=== PATIENT | male | born 1970 | race Caucasian/White ===

== ENCOUNTER 2018-07-07 22:04 | Observation (INO) | payer BC ==
[2018-07-07] MEDS ORDERED: ACETAMINOPHEN 325 MG TAB PO (23:00)
[2018-07-07] MEDS ORDERED: ALBUTEROL/IPRATROPIUM (NEB) 3 ML AMP HHN (23:00)
[2018-07-07] MEDS ORDERED: ONDANSETRON 4 MG INJ IV (23:00)
[2018-07-07] MEDS ORDERED: NACL 0.9% 3 ML SYG IV (23:00)
[2018-07-08] MEDS: METHYLPREDNISOLONE 40 MG INJ IV ×2 (00:14→08:50)
[2018-07-08 05:25] LABS: ADD MAN DIFF? NO
[2018-07-08 05:33] LABS: WHITE BLOOD COUNT 18.7 10^3/ul (4.8-10.8)
[2018-07-08 05:33] LABS: BASOPHILS % 0.1 % (0.0-2.0); HEMATOCRIT 43.6 % (42.0-52.0); HEMOGLOBIN 14.4 g/dl (14.0-18.0); LYMPHOCYTES # 0.6 10^3/ul (0.8-2.9); LYMPHOCYTES % 3.4 % (15.0-51.0); MEAN CORPUSCULAR HEMOGLOBIN 31.1 pg (29.0-33.0); MEAN CORPUSCULAR VOLUME 94.2 fl (82.0-101.0); MEAN PLATELET VOLUME 10.2 fl (7.4-10.4); MONOCYTE # 0.7 10^3/ul (0.3-0.9); MONOCYTES % 3.6 % (0.0-11.0); NEUTROPHIL # 17.3 10^3/ul (1.6-7.5); NEUTROPHILS % 92.3 % (39.0-77.0); PLATELET COUNT 264 10^3/UL (140-415); RED BLOOD COUNT 4.63 10^6/ul (4.70-6.10); RED CELL DISTRIBUTION WIDTH 12.3 % (11.5-14.5)
[2018-07-08 06:04] LABS: ALANINE AMINOTRANSFERASE 18 IU/L (13-69); ALBUMIN 3.5 g/dl (3.3-4.9); ALKALINE PHOSPHATASE 60 IU/L (42-121); ANION GAP 10 (5-13); ASPARTATE AMINO TRANSFERASE 17 IU/L (15-46); BILIRUBIN,INDIRECT 0.5 mg/dl (0-1.1); BILIRUBIN,TOTAL 0.5 mg/dl (0.2-1.3); BLOOD UREA NITROGEN 30 mg/dl (7-20); CALCIUM 9.2 mg/dl (8.4-10.2); CARBON DIOXIDE 29 mmol/L (21-31); CHLORIDE 103 mmol/L (97-110); CREATININE 0.88 mg/dl (0.61-1.24); Estimated GFR > 60 mL/min (>60); GLUCOSE 136 mg/dl (70-220); MAGNESIUM 2.2 mg/dl (1.7-2.5); PHOSPHORUS 4.5 mg/dl (2.5-4.9); POTASSIUM 4.1 mmol/L (3.5-5.1); SODIUM 142 mmol/L (135-144)
[2018-07-08 06:05] LABS: ALBUMIN/GLOBULIN RATIO 1.25; TOTAL PROTEIN 6.3 g/dl (6.1-8.1)
[2018-07-08] MEDS: LEVOFLOXACIN 500MG/D5W (PMX) 100 ML IVPB (06:27)
[2018-07-08] MEDS: NICOTINE (14 MG/24 HR) PATCH TRANSDERM (08:51)
[2018-07-08] MEDS: HEPARIN 5,000 UNIT/1 ML VIAL SC ×2 (08:52→20:41)
[2018-07-08] MEDS: MOMETASONE 0.24 GM INHALER INH ×2 (11:12→20:40)
[2018-07-08] MEDS: ALBUTEROL/IPRATROPIUM (NEB) 3 ML AMP HHN ×3 (12:41→20:52)
[2018-07-09] MEDS: ALBUTEROL/IPRATROPIUM (NEB) 3 ML AMP HHN ×4 (01:02→13:58)
[2018-07-09] MEDS: LEVOFLOXACIN 500MG/D5W (PMX) 100 ML IVPB (05:47)
[2018-07-09] MEDS: METHYLPREDNISOLONE 40 MG INJ IV (09:12)
[2018-07-09] MEDS: NICOTINE (14 MG/24 HR) PATCH TRANSDERM (09:13)
[2018-07-09] MEDS: MOMETASONE 0.24 GM INHALER INH (09:13)
[2018-07-09] MEDS: HEPARIN 5,000 UNIT/1 ML VIAL SC (09:20)
[2018-07-09 11:47] LABS: ADD MAN DIFF? NO
[2018-07-09 11:56] LABS: BASOPHILS % 0.1 % (0.0-2.0); EOSINOPHILS % 0.1 % (0.0-7.0); HEMATOCRIT 43.6 % (42.0-52.0); HEMOGLOBIN 14.7 g/dl (14.0-18.0); LYMPHOCYTES % 7.8 % (15.0-51.0); MEAN CORPUSCULAR HEMOGLOBIN 31.4 pg (29.0-33.0); MEAN CORPUSCULAR HGB CONC 33.7 g/dl (32.0-37.0); MEAN CORPUSCULAR VOLUME 93.2 fl (82.0-101.0); MEAN PLATELET VOLUME 9.9 fl (7.4-10.4); MONOCYTE # 0.9 10^3/ul (0.3-0.9); MONOCYTES % 6.6 % (0.0-11.0); NEUTROPHILS % 84.8 % (39.0-77.0); PLATELET COUNT 252 10^3/UL (140-415); RED BLOOD COUNT 4.68 10^6/ul (4.70-6.10); RED CELL DISTRIBUTION WIDTH 12.4 % (11.5-14.5)
[2018-07-09 12:04] LABS: ANION GAP 9 (5-13); BLOOD UREA NITROGEN 31 mg/dl (7-20); CALCIUM 8.7 mg/dl (8.4-10.2); CARBON DIOXIDE 29 mmol/L (21-31); CHLORIDE 102 mmol/L (97-110); CREATININE 0.89 mg/dl (0.61-1.24); Estimated GFR > 60 mL/min (>60); GLUCOSE 115 mg/dl (70-220); POTASSIUM 3.8 mmol/L (3.5-5.1); SODIUM 140 mmol/L (135-144)
== END 2018-07-09 15:35 | disposition home or self-care (01) ==
LOC: MS1 22:04
DX: J45.901 Unspecified asthma with (acute) exacerbation (principal); R06.02 Shortness of breath; Z71.6 Tobacco abuse counseling
CPT/HCPCS: 71046; 80048; 80053; 83735; 84100; 85025; 90686; 94640; 94664

== ENCOUNTER 2018-10-31 04:47 | Inpatient (IN) | payer BC ==
[2018-10-31] MEDS ORDERED: ONDANSETRON 4 MG INJ IV (06:30)
[2018-10-31] MEDS ORDERED: NACL 0.9% 3 ML SYG IV (06:30)
[2018-10-31] MEDS ORDERED: PROVENTIL HFA 6.7GM INHALER INH (06:30)
[2018-10-31] MEDS: METHYLPREDNISOLONE 125 MG INJ IV ×2 (07:14→21:20)
[2018-10-31] MEDS: MOMETASONE 0.24 GM INHALER INH ×2 (07:44→21:37)
[2018-10-31] MEDS: ALBUTEROL HFA 8 GM INHALER INH ×5 (07:44→21:36)
[2018-10-31] MEDS: NICOTINE (14 MG/24 HR) PATCH TRANSDERM (07:58)
[2018-10-31 08:30] LABS: ADD MAN DIFF? NO
[2018-10-31 08:40] LABS: ABNORMAL IP MESSAGE 1; BASOPHILS % 0.2 % (0.0-2.0); HEMATOCRIT 48.3 % (42.0-52.0); LYMPHOCYTES # 0.6 10^3/ul (0.8-2.9); LYMPHOCYTES % 4.4 % (15.0-51.0); MEAN CORPUSCULAR HEMOGLOBIN 30.9 pg (29.0-33.0); MEAN CORPUSCULAR HGB CONC 33.1 g/dl (32.0-37.0); MEAN CORPUSCULAR VOLUME 93.2 fl (82.0-101.0); MEAN PLATELET VOLUME 9.7 fl (7.4-10.4); MONOCYTE # 0.4 10^3/ul (0.3-0.9); NEUTROPHIL # 12.1 10^3/ul (1.6-7.5); NEUTROPHILS % 91.9 % (39.0-77.0); PLATELET COUNT 309 10^3/UL (140-415); POSITIVE DIFF @See below; RED BLOOD COUNT 5.18 10^6/ul (4.70-6.10); RED CELL DISTRIBUTION WIDTH 12.6 % (11.5-14.5)
[2018-10-31 08:40] LABS: WHITE BLOOD COUNT 13.2 10^3/ul (4.8-10.8)
[2018-10-31] MEDS ORDERED: NON-FORMULARY/PATIENT OWN MED ([Nicotine (14 Mg/24 Hr)] 1 PATCH) TRANSDERM (09:00)
[2018-10-31 09:03] LABS: ALANINE AMINOTRANSFERASE 21 IU/L (13-69); ALBUMIN 4.3 g/dl (3.3-4.9); ALBUMIN/GLOBULIN RATIO 1.34; ALKALINE PHOSPHATASE 65 IU/L (42-121); ANION GAP 19 (5-13); ASPARTATE AMINO TRANSFERASE 25 IU/L (15-46); BILIRUBIN,INDIRECT 0.4 mg/dl (0-1.1); BILIRUBIN,TOTAL 0.4 mg/dl (0.2-1.3); BLOOD UREA NITROGEN 21 mg/dl (7-20); CALCIUM 9.5 mg/dl (8.4-10.2); CARBON DIOXIDE 19 mmol/L (21-31); CHLORIDE 104 mmol/L (97-110); CREATININE 1.04 mg/dl (0.61-1.24); Estimated GFR > 60 mL/min (>60); GLUCOSE 150 mg/dl (70-220); MAGNESIUM 2.4 mg/dl (1.7-2.5); POTASSIUM 3.8 mmol/L (3.5-5.1); SODIUM 142 mmol/L (135-144); TOTAL PROTEIN 7.5 g/dl (6.1-8.1)
[2018-10-31] MEDS ORDERED: GUAIFENESIN/CODEINE 5ML CUP PO (10:30)
[2018-10-31] MEDS: GUAIFENESIN/CODEINE 5ML CUP PO ×2 (10:58→17:14)
[2018-10-31] MEDS: ACETAMINOPHEN 325 MG TAB PO (17:14)
[2018-10-31] MEDS: ALBUTEROL/IPRATROPIUM (NEB) 3 ML AMP HHN (21:54)
[2018-10-31] MEDS: HYDROCODONE/APAP (10/325) TAB PO (22:55)
[2018-11-01] MEDS: ALBUTEROL HFA 8 GM INHALER INH ×5 (02:46→16:39)
[2018-11-01 06:15] LABS: ADD MAN DIFF? NO
[2018-11-01 06:20] LABS: WHITE BLOOD COUNT 15.8 10^3/ul (4.8-10.8)
[2018-11-01 06:20] LABS: BASOPHILS % 0.2 % (0.0-2.0); HEMATOCRIT 45.3 % (42.0-52.0); HEMOGLOBIN 15.2 g/dl (14.0-18.0); LYMPHOCYTES # 1.2 10^3/ul (0.8-2.9); LYMPHOCYTES % 7.6 % (15.0-51.0); MEAN CORPUSCULAR HEMOGLOBIN 31.2 pg (29.0-33.0); MEAN CORPUSCULAR HGB CONC 33.6 g/dl (32.0-37.0); MEAN PLATELET VOLUME 9.6 fl (7.4-10.4); MONOCYTE # 0.5 10^3/ul (0.3-0.9); MONOCYTES % 3.2 % (0.0-11.0); NEUTROPHIL # 13.9 10^3/ul (1.6-7.5); NEUTROPHILS % 88.2 % (39.0-77.0); PLATELET COUNT 294 10^3/UL (140-415); RED BLOOD COUNT 4.87 10^6/ul (4.70-6.10); RED CELL DISTRIBUTION WIDTH 12.4 % (11.5-14.5)
[2018-11-01 07:00] LABS: ANION GAP 10 (5-13); BLOOD UREA NITROGEN 31 mg/dl (7-20); CALCIUM 8.9 mg/dl (8.4-10.2); CARBON DIOXIDE 29 mmol/L (21-31); CHLORIDE 99 mmol/L (97-110); CREATININE 0.87 mg/dl (0.61-1.24); Estimated GFR > 60 mL/min (>60); GLUCOSE 137 mg/dl (70-220); MAGNESIUM 2.4 mg/dl (1.7-2.5); POTASSIUM 4.7 mmol/L (3.5-5.1); SODIUM 138 mmol/L (135-144)
[2018-11-01 07:27] LABS: PHOSPHORUS 4.5 mg/dl (2.5-4.9)
[2018-11-01] MEDS: METHYLPREDNISOLONE 125 MG INJ IV (08:39)
[2018-11-01] MEDS: MOMETASONE 0.24 GM INHALER INH (08:40)
[2018-11-01] MEDS: NICOTINE (14 MG/24 HR) PATCH TRANSDERM (09:00)
[2018-11-01] MEDS: GUAIFENESIN/CODEINE 5ML CUP PO (15:50)
== END 2018-11-01 17:50 | disposition home or self-care (01) | DRG 203 ==
LOC: 6WM 04:47
PROC: 3E0F7GC Introduction of Other Therapeutic Substance into Respiratory Tract, Via Natural or Artificial Opening (ICD-10-PCS; principal; 2018-10-31)
DX: J45.901 Unspecified asthma with (acute) exacerbation (principal); Z87.891 Personal history of nicotine dependence
CPT/HCPCS: 80048; 80053; 83735; 84100; 85025; 94664